=== PATIENT | male | born 1965 | race Caucasian/White ===

== ENCOUNTER 2016-12-06 06:49 | Day surgery (SDC) | payer OTHER ==
[2016-12-05 09:53] VITALS: BMI 25.1
[~2016-12-06 06:49] MED LIST: LACTATED RINGERS 1,000 ML IV SCH; LIDOCAINE 1% 20 ML VIAL (10MG/ML) FOR IV START INTRADERMA PRN
[2016-12-06 07:16] VITALS: RESP 18; TEMP 98.1
[2016-12-06] MEDS ORDERED: LACTATED RINGERS 1,000 ML IV ONE (07:25)
[2016-12-06] MEDS ORDERED: PROPOFOL 10 MG/ML 20 ML VIAL IV ONE (07:33)
--- NOTE | 2016-12-06 07:53 | P.PCN ---
Date of Procedure: 12/06/16 Procedure(s) Performed: BRIEF HISTORY: Patient is a 51-year-old pleasant male, scheduled for an elective colonoscopy as a part of screening for colonic neoplasia. PROCEDURE PERFORMED: Colonoscopy. PREOPERATIVE DIAGNOSIS: Screening for colon cancer. IV sedation per Anesthesia. PROCEDURE: After informed consent was obtained, the patient, was brought into the endoscopy unit. IV sedation was administered by Anesthesia under continuous monitoring. Digital rectal examination was normal. Initially the Olympus CF- 160 flexible video colonoscope was then inserted in the rectum, gradually advanced into the cecum without any difficulty. Careful examination was performed as the scope was gradually being withdrawn. Ileocecal valve and the appendiceal orifice were visualized and appeared normal. Prep was excellent. Mucosa of the cecum, ascending colon, transverse colon, descending colon, sigmoid colon, and rectum appeared normal. Retroflexion was performed in the rectum and no lesions were seen. The patient tolerated the procedure well. IMPRESSION: Normal-appearing colon from rectum to cecum with no evidence of colorectal neoplasia . RECOMMENDATIONS: Findings of this examination were discussed with the patient as well as his family. He was advised to have a repeat screening colonoscopy in 10 years.
[2016-12-06 08:17] VITALS: BP 129/83; PULSE 60
== END 2016-12-06 08:31 | disposition home or self-care (01) ==
LOC: ORWHC2ENDO 06:49
PROVIDERS: ATTEND Internal Medicine Gastroenterology
DX: Z12.11 Encounter for screening for malignant neoplasm of colon (principal); I10 Essential (primary) hypertension; Z79.899 Other long term (current) drug therapy
CPT/HCPCS: J2704; G0121

== ENCOUNTER 2019-03-05 13:20 | Day surgery (SDC) | payer OTHER ==
[2019-02-26 11:47] VITALS: BMI 25.8
--- NOTE | 2019-03-04 17:07 | P.GSHP ---
History of Present Illness H&P Date: 03/05/19 CHIEF COMPLAINT: Ventral hernia. HISTORY OF PRESENT ILLNESS: The patient is a 53-year-old male who presents with a history of swelling along the umbilicus. Findings were consistent with possible ventral hernia. Now she presents for further evaluation and management. PAST MEDICAL HISTORY: Please see list. PAST SURGICAL HISTORY: Please see list. MEDICATIONS: Please see list. ALLERGIES: Please see list. SOCIAL HISTORY: No illicit drug use FAMILY HISTORY: No reports of Crohn disease or ulcerative colitis. REVIEW OF ORGAN SYSTEMS: CONSTITUTIONAL: No reports of fevers or chills. GI: Denies any blood in stools or constipation. PHYSICAL EXAM: VITAL SIGNS: Stable GENERAL: Well-developed pleasant female in no acute distress. HEENT: No scleral icterus. Extraocular movements grossly intact. Moist buccal mucosa. NECK: Supple without lymphadenopathy. CHEST: Unlabored respirations. Equal bilateral excursions. CARDIOVASCULAR: Regular rate and rhythm. Distal 2+ pulses. ABDOMEN: Soft, nondistended. Tender along the umbilicus. MUSCULOSKELETAL: No clubbing, cyanosis, or edema. ASSESSMENT: 1. Ventral hernia. PLAN: 1. Recommend proceeding with robotic ventral hernia repair with mesh. 2. Benefits and risks of surgical intervention was discussed including possibi lity of open technique. 3. DVT prophylaxis. 4. Antibiotic prophylaxis. Past Medical History Past Medical History: Hyperlipidemia, Hypertension Additional Past Medical History / Comment(s): abdominal hernia History of Any Multi-Drug Resistant Organisms: None Reported Past Surgical History: Hernia Repair, Tonsillectomy Additional Past Surgical History / Comment(s): oral surg. Past Anesthesia/Blood Transfusion Reactions: No Reported Reaction Additional Past Anesthesia/Blood Transfusion Reaction / Comment(s): no hx blood transfusion Smoking Status: Former smoker - Past Family History Mother Family Medical History: Cancer Father Family Medical History: Cancer, Hypertension, Vascular Disorder Additional Family Medical History / Comment(s): Father is alive at age 74. Mother mother is 73 years of age lung CA,Colon CA mets in liver. He has a total of 3 brothers and 2 have hypertension. He has no sisters. His children have no major medical problems. Medications and Allergies Home Medications Medication Instructions Recorded Confirmed Type Aspirin EC [Ecotrin] 81 mg PO DAILY 12/05/16 02/26/19 History Atorvastatin [Lipitor] 40 mg PO HS 12/05/16 02/26/19 History Chlorthalidone 25 mg PO DAILY 12/05/16 02/26/19 History Enalapril [Vasotec] 20 mg PO QAM 12/05/16 02/26/19 History Ranitidine HCl [Zantac] 150 mg PO QAM 02/26/19 02/26/19 History amLODIPine [Norvasc] 10 mg PO QAM 02/26/19 02/26/19 History Allergies Allergy/AdvReac Type Severity Reaction Status Date / Time No Known Allergies Allergy Verified 02/26/19 11:37
[~2019-03-05 13:20] MED LIST changes: +ACETAMINOPHEN TAB 500 MG TAB PO STA; +DEXAMETHASONE SOD PHOSPHATE 10 MG/ML 1 ML VIAL IV ONE; +GABAPENTIN 300 MG CAP PO STA; +HEPARIN SODIUM,PORCINE 5,000 UNIT/ML 1 ML VIAL SQ ONE; +MIDAZOLAM 2 MG/2 ML VIAL IV PRN; +ONDANSETRON 4 MG/2 ML VIAL IVP ONE; +TAMSULOSIN 0.4 MG CAP.ER.24H PO STA; +fentaNYL (PF) 50 MCG/ML 2 ML AMP IVP PRN
[2019-03-05 14:33] LABS: Basophils # (A) 0.1 k/uL (0-0.2); Basophils % (A) 1 %; Eosinophils # (A) 0.1 k/uL (0-0.7); Eosinophils % (A) 1 %; HCT 46.2 % (39.0-53.0); HGB 16.7 gm/dL (13.0-17.5); Lymphocytes # (A) 1.7 k/uL (1.0-4.8); Lymphocytes % (A) 16 %; MCH 32.6 pg (25.0-35.0); MCHC 36.3 g/dL (31.0-37.0); Mean Platelet Volume 7.1; Monocytes # (A) 0.5 k/uL (0-1.0); Monocytes % (A) 5 %; Neutrophils # (A) 7.5 k/uL (1.3-7.7); Neutrophils % (A) 75 %; Platelet Count 353 k/uL (150-450); RBC 5.13 m/uL (4.30-5.90); RDW 12.8 % (11.5-15.5)
[2019-03-05 14:38] LABS: ALT 24 U/L (4-49); AST 34 U/L (17-59); African American GFR (CKD) >90 (>60 ml/min/1.73 sqM); Alkaline Phosphatase 109 U/L (38-126); Anion Gap 10 mmol/L; Blood Urea Nitrogen 13 mg/dL (9-20); Calcium 10.4 mg/dL (8.4-10.2); Carbon Dioxide 29 mmol/L (22-30); Chloride 97 mmol/L (98-107); Glucose 112 mg/dL (74-99); Non-African American GFR(CKD) >90 (>60 ml/min/1.73 sqM); Potassium 3.8 mmol/L (3.5-5.1); Sodium 136 mmol/L (137-145); Total Protein 7.9 g/dL (6.3-8.2)
[2019-03-05] MEDS ORDERED: MIDAZOLAM 2 MG/2 ML VIAL IV ONE (15:27)
[2019-03-05] MEDS ORDERED: fentaNYL (PF) 50 MCG/ML 2 ML AMP IV ONE (15:27)
[2019-03-05] MEDS ORDERED: HYDROmorphone (PF) 1 MG/ML ONE (15:44)
[2019-03-05] MEDS ORDERED: BUPIVACAIN-EPI 0.25%-1:200,000 30 ML VIAL SQ ONE (15:44)
[2019-03-05] MEDS ORDERED: SUCCINYLCHOLINE CHLORIDE 100 MG/5 ML SYR IV ONE (15:44)
[2019-03-05] MEDS ORDERED: fentaNYL (PF) 50 MCG/ML 2 ML AMP ONE (15:44)
[2019-03-05] MEDS ORDERED: NEOSTIGMINE 1 MG/ML 10 ML VIAL ONE (15:44)
[2019-03-05] MEDS ORDERED: PROPOFOL 10 MG/ML 20 ML VIAL IV ONE (15:44)
[2019-03-05] MEDS ORDERED: LIDOCAINE 1%-EPI 1:100,000 20 ML VIAL ONE (15:44)
[2019-03-05] MEDS ORDERED: ROPIVACAINE 5 MG/ML 30 ML VIAL ONE (15:44)
[2019-03-05] MEDS ORDERED: MIDAZOLAM 2 MG/2 ML VIAL ONE (15:44)
[2019-03-05] MEDS ORDERED: GLYCOPYRROLATE 0.2 MG/ML 2 ML VIAL ONE (15:44)
[2019-03-05] MEDS ORDERED: ROCURONIUM BROMIDE 10 MG/ML 10 ML VIAL IV ONE (15:44)
[2019-03-05] MEDS ORDERED: LIDOCAINE 1% INJ 10MG/ML (20 ML MDV) ONE (15:44)
[2019-03-05] MEDS ORDERED: KETOROLAC 30 MG/ML 1 ML VIAL ONE (15:44)
[2019-03-05] MEDS ORDERED: LACTATED RINGERS 1,000 ML IV ONE ×2 (16:12→17:45)
--- NOTE | 2019-03-05 16:21 | P.ANPRN ---
Procedure Note - Anesthesia - Nerve Block Performed Bilateral Rectus Abdominis Single Time Out Performed: Yes Date of Procedure: 03/05/19 Procedure Start Time: 15:22 Location of Patient: PreOp Indication: Acute Post-Operative Pain, Requested by Surgeon Specifically requested for management of pain by DrCarmen: Elsi Quigley Sedation Type: Sedate with meaningful contact maintained Preparation: Sterile Prep Position: Supine Catheter: None Needle Types: Pajunk Needle Gauge: 20 Ultrasound used to visualize needle placement: Yes Ultrasound used to observe medication spread: Yes Injectate: Other (see comment) (0.25% ropivacaine/0.5% lidocaine 25 mL per side) Adjunct: Epinephrine (see comment for dilution ratio) (1/200,000) Blood Aspirated: No Pain Paresthesia on Injection Noted: No Resistance on Injection: Normal Image Stored and Saved: Yes Events: Uneventful and Well Tolerated
[2019-03-05 17:24] VITALS: TEMP 97.6
[2019-03-05] MEDS: HYDROmorphone 0.5 MG/0.5 ML SYRINGE IVP PRN ×2 (17:29→17:34)
--- NOTE | 2019-03-05 17:43 | P.OP ---
Date of Procedure: 03/05/19 Description of Procedure: SURGEON: ELSI QUIGLEY MD 1. BRYSON MAR PREOPERATIVE DIAGNOSES: 1. Initial epigastric ventral hernia with incarceration 2. Initial incarcerated umbilical hernia 3. Personal history of multiple abdominal wall hernia 4. Hypertensive heart disease 5. Gastroesophageal reflux disease 6. Hyperlipidemia POSTOPERATIVE DIAGNOSES: 1. Initial epigastric ventral hernia with incarceration 2. Initial incarcerated umbilical hernia 3. Personal history of multiple abdominal wall hernia 4. Hypertensive heart disease 5. Gastroesophageal reflux disease 6. Hyperlipidemia OPERATION: 1. Robotic-assisted da Adam Xi laparoscopic repair of initial incarcerated epigastric ventral hernia with mesh, ventralight ST mesh 11.4 cm 2. Robotic-assisted da Adam Xi laparoscopic repair of initial incarcerated umbilical hernia with mesh, ventralight ST mesh 11.4 cm Anesthesia: GETA, regional, local Estimated Blood Loss (ml): 5 Pathology: 1. Incarcerated umbilical hernia defect 2. Incarcerated upper midline ventral hernia defect COMPLICATIONS: None. Operative Findings: 1. Upper midline epigastric ventral hernia defect 4 x 3 cm 2. Umbilical hernia defect 2 x 3 cm 3. Fascia repaired using #1 V-lock suture INDICATIONS: The patient is a 53-year-old male who presents with a personal history of multiple abdominal wall hernias. Surgical intervention with laparoscopic versus robotic and open techniques were reviewed. Placement of mesh was also reviewed. Benefits and risks were thoroughly described. Informed consent was obtained. DESCRIPTION OF PROCEDURE: The patient was brought into the operating room and laid in supine position. After general induction, the abdomen had been prepped and draped in standard sterile fashion. Ioban draping was also placed. Prior to incision, a timeout protocol was confirmed with surgical team regarding the patient's name including procedures to be performed. The robot was primed prior to the procedure. A field block using local anesthetic was placed along hernia site including the proposed port sites. Initial incision was made with an #11 blade along the left upper quadrant. A 0 degree 5 mm laparoscopic trocar entry was performed and insufflated. Three 8 mm ports were placed along the left lateral abdominal wall under direct localization after exchanging the 5-mm for an 8 mm port. Placements of the ports were 15 cm from the target anatomy and 10 cm apart. An accessory 12 mm port was placed at the right upper quadrant for exchange of mesh including sutures. The da Adam Xi robot was previously primed, prepped and draped then docked from the right side of the patient onto the left side of the patient. I then sat at the robot Da Adam Xi console where working arms of the robot including Bovie cautery connected to robotic scissors, needle team truck driver, and graspers placed by the front office assistant. Incarcerated omental contents were found along the upper midline defect including umbilicus. The defects were reduced with preperitoneal fat including the falciform ligament at the upper midline defect. Two distinct fascial defects were found: Upper midline defect 4 x 3 cm and umbilical hernia defect 2 x 3 cm. The incarcerated contents were reduced as the peritoneal fat was cleaned from the abdominal wall. Next, hemostasis was checked with cautery. The hernia defects were oversewn using #1 nonabsorbable V-lock suture for each defect separately with fascial imbrication x 2. Next, ventralight ST mesh 11.4 cm was placed with the rough side towards the abdominal wall as to cover the epigastric including umbilical defect. 2-0 VLOC 9 inch sutures were used to fixate the mesh. A final endoscopic imaging was obtained. All instruments and pneumoperitoneum were evacuated from the abdominal cavity. The da Adam Xi robot was undocked from the patient. I re-scrubbed into the case for closure of incisions. The fascia of the 12-mm port was probed and less than 8-mm in size. The incisions were reapproximated using 4-0 Monocryl in an interrupted subcuticular fashion. Liquid glue was applied to the skin after cleansing the skin with normal saline and dilute hydrogen peroxide. An abdominal binder was placed. An umbilical dressing was placed prior. At the end of the procedure, needle, sponge, and instrument count had been verified correct by surgical sales representative. The patient was taken to the postanesthesia care unit in stable condition. Plan - Discharge Summary Discharge Rx Participant: Yes New Discharge Prescriptions: New Tamsulosin [Flomax] 0.4 mg PO DAILY #7 cap Ibuprofen [Motrin] 600 mg PO Q8HR PRN #30 tab PRN Reason: Pain HYDROcodone/APAP 5-325MG [[place] 5-325] 1 tab PO Q6HR PRN 3 Days #10 tab PRN Reason: Pain Acetaminophen Tab [Tylenol Tab] 500 mg PO Q6H PRN #30 tablet PRN Reason: Pain No Action Chlorthalidone 25 mg PO DAILY Aspirin EC [Ecotrin] 81 mg PO DAILY Enalapril [Vasotec] 20 mg PO QAM Atorvastatin [Lipitor] 40 mg PO HS amLODIPine [Norvasc] 10 mg PO QAM Ranitidine HCl [Zantac] 150 mg PO QAM Discharge Medication List Aspirin EC [Ecotrin] 81 mg PO DAILY 12/05/16 [History] Atorvastatin [Lipitor] 40 mg PO HS 12/05/16 [History] Chlorthalidone 25 mg PO DAILY 12/05/16 [History] Enalapril [Vasotec] 20 mg PO QAM 12/05/16 [History] Ranitidine HCl [Zantac] 150 mg PO QAM 02/26/19 [History] amLODIPine [Norvasc] 10 mg PO QAM 02/26/19 [History] Acetaminophen Tab [Tylenol Tab] 500 mg PO Q6H PRN #30 tablet 03/05/19 [Rx] HYDROcodone/APAP 5-325MG [[place] 5-325] 1 tab PO Q6HR PRN 3 Days #10 tab 03/05/19 [Rx] Ibuprofen [Motrin] 600 mg PO Q8HR PRN #30 tab 03/05/19 [Rx] Tamsulosin [Flomax] 0.4 mg PO DAILY #7 cap 03/05/19 [Rx] Follow up Appointment(s)/Referral(s): Elsi Quigley MD [STAFF PHYSICIAN] - 03/11/19 Patient Instructions/Handouts: Laparoscopic Herniorrhaphy (DC), Ventral Hernia Repair (GEN), Umbilical Hernia Repair (DC) Activity/Diet/Wound Care/Special Instructions: Wear abdominal binder at all times except showering. Using antibacterial soap. No lifting over 4 pounds 4 weeks, until 04/05/19 Diet as tolerated. No driving while on narcotics. Use Tylenol and ibuprofen scheduled for the next 24-48 hours for best pain relief. Use ice along incisions for the today to prevent swelling. Discharge Disposition: HOME SELF-CARE
[2019-03-05 17:46] VITALS: RESP 16
[2019-03-05] MEDS ORDERED: HYDROcodone/APAP 5-325MG 1 EACH TAB PO ONE (18:21)
[2019-03-05 18:41] VITALS: BP 116/76; PULSE 80
[2019-03-05] MEDS ORDERED: TAMSULOSIN 0.4 MG CAP.ER.24H PO ONE (19:19)
== END 2019-03-05 19:49 | disposition home or self-care (01) ==
LOC: OR 13:20
PROVIDERS: ATTEND Surgery Plastic and Reconstructive Surgery
DX: K43.6 Other and unspecified ventral hernia with obstruction, without gangrene (principal); K42.0 Umbilical hernia with obstruction, without gangrene; I11.9 Hypertensive heart disease without heart failure; K21.9 Gastro-esophageal reflux disease without esophagitis; E78.2 Mixed hyperlipidemia; Z82.49 Family history of ischemic heart disease and other diseases of the circulatory system; Z87.891 Personal history of nicotine dependence; Z79.82 Long term (current) use of aspirin; Z79.899 Other long term (current) drug therapy; Z98.890 Other specified postprocedural states; Z80.1 Family history of malignant neoplasm of trachea, bronchus and lung; Z80.0 Family history of malignant neoplasm of digestive organs
CPT/HCPCS: 49653 ×2; 64488; 80053; 85025; 88302; C1781; J2250; J1644; J1100; J2710; J0690; J2405; J2001; J3010; J1885; J1170 ×2; J2795; J0330; J2704

== ENCOUNTER → 2023-12-15 | Outpatient (CLI) | payer OTHER ==
--- NOTE | 2023-12-15 16:30 | XR ---
EXAMINATION TYPE: XR hand complete bilateral DATE OF EXAM: 12/15/2023 4:19 PM CLINICAL INDICATION: Male, 58 years old with history of [id number] EMILY HAND PAIN; [facility] COMPARISON: None TECHNIQUE: XR hand complete bilateral Frontal, lateral and oblique views were obtained. FINDINGS: Normal alignment of the visualized joints. No acute osseous pathology is identified. No e vidence of soft tissue swelling. Multifocal degeneration changes with joint space narrowing and osteo phyte formation. IMPRESSION: 1. No acute osseous pathology. 2. 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 [facility], , 12/15/2023 4:27 PM
== END | disposition home or self-care (01) ==
LOC: RADXRYALE 16:03
PROVIDERS: ATTEND Physician Assistant Medical
DX: M19.042 Primary osteoarthritis, left hand (principal); M19.041 Primary osteoarthritis, right hand